=== PATIENT | female | born 1975 | race Caucasian/White ===

== ENCOUNTER 2018-04-27 06:33 | Emergency (ER) | payer MEDICAID, OTHER ==
[2018-04-27 06:37] VITALS: BMI 23.6
--- NOTE | 2018-04-27 07:31 | ED PDOC ---
Arrival/HPI - General Historian: Patient - History of Present Illness Symptom Onset: Gradual Symptom Course: Unchanged Severity Level: Mild <Lalit Riggins - Last Filed: 04/27/18 10:41> <Ramy Hobson - Last Filed: 04/28/18 22:27> - General Chief Complaint: Allergic Reaction Time Seen by Provider: 04/27/18 07:17 - History of Present Illness Narrative History of Present Illness (Text): 04/27/18 07:21 42 year old female, past medical history of significant for depression and fibroids, presents to the ED with abdominal bloating that started a few hours ago. Patient states she went to a house alliance party last night and took Brittni. She started feeling a sore throat and shortly left the alliance party thereafter. She denies any difficulty breathing, shortness of breath, or feelings of her throat closing up. When she came home she drank an entire bottle of milk and took Melatonin, which she takes regularly. After an hour she began feeling bloated. She denies any abdominal pain, bowel movements since yesterday, passing of flatus, nausea, vomiting, headache, or dizziness. 04/27/18 07:35 04/27/18 10:41 No PMD (Lalit Riggins) Past Medical History - Provider Review Nursing Documentation Reviewed: Yes - Infectious Disease Hx of Infectious Diseases: None - Tetanus Immunization Tetanus Immunization: Unknown - Genitourinary/Gynecological Other/Comment: Fibroids - Psychiatric Hx Depression: Yes Hx Substance Use: No - Surgical History Other/Comment: Removal of fibroids - Anesthesia Hx Anesthesia: No - Suicidal Assessment Suicidal Thoughts: No <Lalit Riggins - Last Filed: 04/27/18 10:41> Family/Social History - Physician Review Nursing Documentation Reviewed: Yes Family/Social History: No Known Family HX Smoking Status: Smokes e-cigs Hx Alcohol Use: No Frequency of alcohol use: Few days per week Hx Substance Use: No <Lalit Riggins - Last Filed: 04/27/18 10:41> Allergies/Home Meds <Lalit Riggins - Last Filed: 04/27/18 10:41> <Ramy Hobson - Last Filed: 04/28/18 22:27> Allergies/Adverse Reactions: Allergies No Known Allergies Allergy (Verified 04/27/18 06:40) Home Medications: Home Meds Medication Instructions Recorded Confirmed No Known Home Med 04/27/18 04/27/18 Review of Systems - Physician Review All systems were reviewed & negative as marked: Yes - Review of Systems Constitutional: absent: Fevers Eyes: absent: Vision Changes ENT: Sore Throat Respiratory: absent: SOB Cardiovascular: absent: Chest Pain, Palpitations Gastrointestinal: absent: Abdominal Pain, Nausea, Vomiting Genitourinary Female: absent: Dysuria Musculoskeletal: absent: Back Pain Skin: absent: Rash Neurological: absent: Headache, Dizziness Endocrine: absent: Diaphoresis Hemo/Lymphatic: absent: Adenopathy Psychiatric: absent: Anxiety <Lalit Riggins - Last Filed: 04/27/18 10:41> Physical Exam Vital Signs Reviewed: Yes Temperature: Afebrile Blood Pressure: Normal Pulse: Tachycardic Respiratory Rate: Normal Appearance: Positive for: Well-Appearing, Non-Toxic, Comfortable Pain Distress: None Mental Status: Positive for: Alert and Oriented X 3 - Systems Exam Head: Present: Atraumatic, Normocephalic Pupils: Present: PERRL Extroacular Muscles: Present: EOMI Mouth: Present: Moist Mucous Membranes Neck: Present: Normal Range of Motion Respiratory/Chest: Present: Clear to Auscultation. No: Respiratory Distress, Accessory Muscle Use, Wheezes Cardiovascular: Present: Regular Rate and Rhythm Abdomen: Present: Distention, Normal Bowel Sounds. No: Tenderness Neurological: Present: Speech Normal Skin: Present: Warm, Dry Psychiatric: Present: Alert, Oriented x 3, Anxious <Lalit Riggins - Last Filed: 04/27/18 10:41> Vital Signs Temp Pulse Resp BP Pulse Ox 04/27/18 09:12 98 F 85 19 124/53 L 99 04/27/18 08:27 128/72 04/27/18 06:53 97.9 F 91 H 18 130/85 100 Medical Decision Making Reassessment Condition: Improved <Lalit Riggins - Last Filed: 04/27/18 10:41> <Ramy Hobson - Last Filed: 04/28/18 22:27> ED Course and Treatment: 04/27/18 07:53 42 year old female presenting with abdominal distension. Patient given Maalox and Pepcid. Abdominal x-ray ordered. Urine drug screen ordered. 04/27/18 08:51 Patient had 2 bowel movements in the ED. States her abdomen is back to normal and no longer feels bloated. Abdominal x-ray shows no bowel obstruction and moderate constipation. 04/27/18 09:08 UDS positive for cocaine (Lalit Riggins) Patient is a 42 year old female with history of fibroids and depression. Patient arrives to ER for complaint of abdominal bloating. Patient Seen With Resident: In agreement with resident note which contains more details about the patient. Patient was seen and evaluated with resident. Came up with plan and treatment together. (Ramy Hobson) - Lab Interpretations Lab Results: Lab Results 04/27/18 08:00: Urine Opiates Screen Negative, Urine Methadone Screen Negative, Ur Barbiturates Screen Negative, Ur Phencyclidine Scrn Negative, Ur Amphetamines Screen Negative, U Benzodiazepines Scrn Negative, U Oth Cocaine Metabols Positive H, U Cannabinoids Screen Negative - RAD Interpretation Radiology Orders: 04/27/18 07:33 ABDOMEN PORTABLE 2 VIEWS [RAD] Stat - Medication Orders Current Medication Orders: Discontinued Medications Al Hydrox/Mg Hydrox/Simethicone (Maalox Plus 30 Ml) 30 ml PO STAT STA Stop: 04/27/18 07:33 Last Admin: 04/27/18 07:48 Dose: 30 ml Famotidine (Pepcid) 20 mg PO STAT STA Stop: 04/27/18 07:33 Last Admin: 04/27/18 07:48 Dose: 20 mg - PA / CARROT BUNCHER / Resident Statement / has reviewed & agrees with the documentation as recorded. / has examined the patient and agrees with the treatment plan. <Ramy Hobson - Last Filed: 04/28/18 22:27> Disposition/Present on Arrival - Present on Arrival History of DVT/PE: No History of Uncontrolled Diabetes: No Urinary Catheter: No History of Decub. Ulcer: No History Surgical Site Infection Following: None <Lalit Riggins - Last Filed: 04/27/18 10:41> - Present on Arrival Any Indicators Present on Arrival: No - Disposition Have Diagnosis and Disposition been Completed?: Yes Disposition Time: 08:48 Patient Plan: Discharge <Ramy Hobson - Last Filed: 04/28/18 22:27> - Disposition Diagnosis: Gastritis, Constipation Disposition: HOME/ ROUTINE Condition: IMPROVED Discharge Instructions (ExitCare): Constipation, Adult (DC), Gastritis (DC) Referrals: Janell Chaparro MD [Medical Doctor] - Follow up with primary [facility] at [facility] [place] [Outside] - Follow up with primary Forms: [employer] (Luxembourger)
[2018-04-27] MEDS ORDERED: Alum-Mag Hydrox-Simethicone Susp (30 mL) PO STA (07:32)
--- NOTE | 2018-04-27 08:48 | RAD ---
Date of service: 04/27/2018 HISTORY: abdominal distention COMPARISON: None available FINDINGS: BOWEL: Nonobstructive bowel gas pattern. Moderate constipation. No definite free air. BONES: No acute osseous abnormality is detected. OTHER FINDINGS: Lung bases appear clear. Abdominal jewelry. IMPRESSION: Nonobstructive bowel gas pattern. Moderate constipation.
[2018-04-27 09:03] LABS: BARBITURATES, UR NEGATIVE (NEGATIVE); BENZODIAZEPINES, UR NEGATIVE (NEGATIVE); OPIATES, UR NEGATIVE (NEGATIVE); PHENCYCLIDINE, UR NEGATIVE (NEGATIVE)
[2018-04-27 09:15] VITALS: BP 124/53; PULSE 85; RESP 19; TEMP 98; O2SAT 99
== END 2018-04-27 09:12 | disposition home or self-care (01) ==
LOC: ED 06:33
DX: K29.70 Gastritis, unspecified, without bleeding (principal); K59.00 Constipation, unspecified
CPT/HCPCS: 74019; 99284; G0480

== ENCOUNTER 2018-05-02 06:12 | Emergency (ER) | payer MEDICAID, OTHER ==
[2018-05-02 06:12] VITALS: BMI 23.6
--- NOTE | 2018-05-02 07:15 | ED PDOC ---
Arrival/HPI - General Historian: Patient - History of Present Illness Time/Duration: 1-3 hours Symptom Onset: Sudden Symptom Course: Unchanged Quality: Pressure Severity Level: 5 <Sajan Montoya - Last Filed: 05/02/18 10:42> <Trino Hope - Last Filed: 05/02/18 11:07> - General Chief Complaint: Anxiety Time Seen by Provider: 05/02/18 07:14 - History of Present Illness Narrative History of Present Illness (Text): 05/02/18 07:15 42 year old female, past medical history of significant for anxiety, depression , and fibroids, presents to the ED with anxiety and chest pain. Patient states that she started feeling anxious this morning after ingesting 4 tablets of citalopram, one bottle of red wine, and snort some cocaine. She also admits to have chest pain that she describes as pressure-like, 5/10, and non-radiating. She denies suicidal or homicidal ideation. Patient further denies headaches, fevers, chills, N/V/D, shortness of breath, or urinary symptoms. 05/02/18 08:47 (Sajan Montoya) Past Medical History - Provider Review Nursing Documentation Reviewed: Yes - Travel History Have you recently traveled outside [place] w/in the past 3 mons?: No - Past History Past History: No Previous - Infectious Disease Hx of Infectious Diseases: None - Tetanus Immunization Tetanus Immunization: Unknown - Reproductive Menopause: No - Hematological/Oncological Hx Anemia: Yes - Genitourinary/Gynecological Other/Comment: Fibroids - Psychiatric Hx Anxiety: Yes Hx Depression: Yes Hx Panic Disorder: Yes Hx Substance Use: No - Surgical History Other/Comment: Removal of fibroids - Anesthesia Hx Anesthesia: No <Sajan Montoya - Last Filed: 05/02/18 10:42> Family/Social History - Physician Review Nursing Documentation Reviewed: Yes Family/Social History: Hypertension Smoking Status: Light Smoker < 10 Cigarettes Daily Hx Alcohol Use: Yes Frequency of alcohol use: Socially Hx Substance Use: Yes <Sajan Montoya - Last Filed: 05/02/18 10:42> Allergies/Home Meds <Sajan Montoya - Last Filed: 05/02/18 10:42> <Trino Hope - Last Filed: 05/02/18 11:07> Allergies/Adverse Reactions: Allergies No Known Allergies Allergy (Verified 05/02/18 06:34) Home Medications: Home Meds Medication Instructions Recorded Confirmed Citalopram [celEXA] 20 mg PO 05/02/18 Review of Systems - Physician Review All systems were reviewed & negative as marked: Yes - Review of Systems Constitutional: Normal. absent: Fevers, Night Sweats Eyes: Normal. absent: Vision Changes ENT: Normal Respiratory: Normal Cardiovascular: Chest Pain Gastrointestinal: Normal. absent: Constipation, Diarrhea, Nausea, Vomiting Genitourinary Female: Normal. absent: Dysuria, Frequency, Hematuria Musculoskeletal: Normal Skin: Normal. absent: Rash, Pruritis Neurological: Normal. absent: Headache, Dizziness Psychiatric: Anxiety <Sajan Montoya - Last Filed: 05/02/18 10:42> Physical Exam Vital Signs Reviewed: Yes Temperature: Afebrile Blood Pressure: Hypertensive Pulse: Tachycardic Respiratory Rate: Normal Appearance: Positive for: Well-Appearing, Comfortable. No: Non-Toxic Pain Distress: Mild Mental Status: Positive for: Alert and Oriented X 3 - Systems Exam Head: Present: Atraumatic, Normocephalic Pupils: Present: PERRL Extroacular Muscles: Present: EOMI Conjunctiva: Present: Normal Mouth: Present: Moist Mucous Membranes Respiratory/Chest: Present: Clear to Auscultation, Good Air Exchange. No: Respiratory Distress, Accessory Muscle Use Cardiovascular: Present: Normal S1, S2, Tachycardic. No: Murmurs, Rub, Gallop Abdomen: Present: Tenderness (epigastric region tender to palpation), Normal Bowel Sounds. No: Distention, Peritoneal Signs Upper Extremity: Present: Normal Inspection. No: Cyanosis, Edema Lower Extremity: Present: Normal Inspection. No: Edema, CALF TENDERNESS Neurological: Present: GCS=15, CN II-XII Intact, Speech Normal Skin: Present: Warm, Dry, Normal Color. No: Rashes Psychiatric: Present: Alert, Oriented x 3 <Sajan Montoya - Last Filed: 05/02/18 10:42> Vital Signs Temp Pulse Resp BP Pulse Ox 05/02/18 10:42 75 19 117/75 96 05/02/18 08:00 98.7 F 72 18 122/65 99 05/02/18 06:36 98 F 101 H 17 141/81 98 Medical Decision Making <Sajan Montoya - Last Filed: 05/02/18 10:42> - Lab Interpretations I have reviewed the lab results: Yes - EKG Interpretation Interpreted by ED Physician: Yes Type: 12 lead EKG <HerminiaTrino - Last Filed: 05/02/18 11:07> ED Course and Treatment: 05/02/18 07:42 Impression: Patient is a 42 year old female presenting to the ED with anxiety and chest pain. Differential Diagnosis included but are not limited to: - Anxiety - CA Plan: -- EKG -- CBC -- CMP -- Troponin -- Ativan Progress Notes: 05/02/18 08:52 - EKG: NSR at 80 bpm, no ST changes - UDS: positive for coccaine (Sajan Montoya) Patient Seen With Resident: In agreement with resident note which contains more details about the patient. Patient was seen and evaluated with resident. Came up with plan and treatment together. 42 year old female presents complaining of anxiety, abdominal pain, and chest pain that began this morning after ingesting 4 tablets of citalopram, one bottle of red wine, and snort some cocaine Plan: -- EKG -- Labs -- Ativan -- Reassess and disposition (Trino Hope) - Lab Interpretations Lab Results: 05/02/18 08:10 05/02/18 08:10 Lab Results 05/02/18 08:10: WBC 12.9 H, RBC 4.37, Hgb 13.5, Hct 38.7, MCV 88.6, MCH 30.9, MCHC 34.9, RDW 12.5, Plt Count 288, MPV 9.7, Gran % 83.4 H, Lymph % (Auto) 13.1 L, Mcdonald % (Auto) 3.0, Eos % (Auto) 0.2 L, Baso % (Auto) 0.3, Gran # 10.78 H, Lymph # (Auto) 1.7, Mcdonald # (Auto) 0.4, Eos # (Auto) 0.0, Baso # (Auto) 0.04 05/02/18 08:10: Sodium 137, Potassium 4.0, Chloride 102, Carbon Dioxide 24, Anion Gap 15, BUN 9, Creatinine 0.6 L, Est GFR ( Amer) > 60, Est GFR (Non -Af Amer) > 60, Random Glucose 89, Calcium 9.2, Total Bilirubin 0.3, AST 26, ALT 21, Alkaline Phosphatase 44, Troponin I < 0.01, Total Protein 7.7, Albumin 4.5, Globulin 3.2, Albumin/Globulin Ratio 1.4 05/02/18 07:51: Urine Opiates Screen Negative, Urine Methadone Screen Negative, Ur Barbiturates Screen Negative, Ur Phencyclidine Scrn Negative, Ur Amphetamines Screen Negative, U Benzodiazepines Scrn Negative, U Oth Cocaine Metabols Positive H, U Cannabinoids Screen Negative - Medication Orders Current Medication Orders: Discontinued Medications Lorazepam (Ativan) 1 mg PO ONCE ONE PRN Reason: Protocol Stop: 05/02/18 07:38 Last Admin: 05/02/18 08:14 Dose: 1 mg <Sajan Montoya - Last Filed: 05/02/18 10:42> - PA / AWS CONSULTANT / Resident Statement / has reviewed & agrees with the documentation as recorded. MD/ has examined the patient and agrees with the treatment plan. - Scribe Statement The provider has reviewed the documentation as recorded by the Scribe <Trino Hope - Last Filed: 05/02/18 11:07> - Scribe Statement Jenny Peters Provider Scribe Attestation: All medical record entries made by the Scribe were at my direction and personally dictated by me. I have reviewed the chart and agree that the record accurately reflects my personal performance of the history, physical exam, medical decision making, and the department course for this patient. I have also personally directed, reviewed, and agree with the discharge instructions and disposition. (Trino Hope) Disposition/Present on Arrival - Present on Arrival History of DVT/PE: No History of Uncontrolled Diabetes: No Urinary Catheter: No History of Decub. Ulcer: No History Surgical Site Infection Following: None <Sajan Montoya - Last Filed: 05/02/18 10:42> <Trino Hope - Last Filed: 05/02/18 11:07> - Disposition Diagnosis: Anxiety Disposition: HOME/ ROUTINE Patient Problems: Current Active Problems Problem Status Onset Anxiety Acute Condition: IMPROVED Discharge Instructions (ExitCare): Anxiety, Adult (DC) Additional Instructions: DESHAWN SMITH, thank you for letting us take care of you today. Your provider was Trino Hope DO and you were treated for ANXIETY. The emergency medical care you received today was directed at your acute symptoms. If you were prescribed any medication, please fill it and take as directed. It may take several days for your symptoms to resolve. Return to the Emergency Department if your symptoms worsen, do not improve, or if you have any other problems. Please contact your doctor or call one of the physicians/clinics you have been referred to that are listed on the Patient Visit Information form that is included in your discharge packet. Bring any paperwork you were given at discharge with you along with any medications you are taking to your follow up visit. Our treatment cannot replace ongoing medical care by a primary care provider outside of the emergency department. Thank you for allowing the [facility] team to be part of your care today. If you had an X-Ray or CT scan: A Radiologist will review the ED reading if any change in treatment is needed we will contact you. If you had a blood, urine, or wound culture: It will take several days for the results, if any change in treatment is needed we will contact you. If you had an STI test: It will take 48 hours for the results. Please call after 1 week if you have not heard back. Referrals: FAMILY PROVIDER,NO [Primary Care Provider] - Follow up with primary Janell Chaparro MD [Medical Doctor] - Follow up with primary Forms: [employer] (Sammarinese)
[2018-05-02 08:31] LABS: BASO # 0.04 K/mm3 (0.0-2.0); BASO % 0.3 % (0.0-3.0); EOS % 0.2 % (1.5-5.0); GRAN # 10.78 (1.4-6.5); GRAN % 83.4 % (50.0-68.0); HEMOGLOBIN 13.5 g/dL (12.0-16.0); LYMPH # 1.7 (1.2-3.4); LYMPH % 13.1 % (22.0-35.0); MEAN CELL VOLUME 88.6 fl (80.0-105.0); MEAN CORPUSCULAR HEMOGLOBIN 30.9 pg (25.0-35.0); MEAN CORPUSCULAR HGB CONC 34.9 g/dl (31.0-37.0); MEAN PLATELET VOLUME 9.7 fl (7.0-11.0); MONO # 0.4 (0.1-0.6); RBC 4.37 10^6/uL (3.5-6.1); RED CELL DISTRIBUTION WIDTH 12.5 % (11.5-14.5); WHITE BLOOD COUNT 12.9 10^3/ul (4.5-11.0)
[2018-05-02 08:41] LABS: ALB/GLOB RATIO 1.4 (1.1-1.8); ALBUMIN 4.5 g/dL (3.0-4.8); ALT/SGPT 21 U/L (7-56); AST/SGOT 26 U/L (14-36); BLOOD UREA NITROGEN 9 mg/dL (7-21); CALCIUM 9.2 mg/dL (8.4-10.5); GFR NON-AFRICAN AMERICAN > 60
[2018-05-02 08:53] LABS: TROPONIN I < 0.01 ng/mL
[2018-05-02 10:21] LABS: BARBITURATES, UR NEGATIVE (NEGATIVE); BENZODIAZEPINES, UR NEGATIVE (NEGATIVE); OPIATES, UR NEGATIVE (NEGATIVE); PHENCYCLIDINE, UR NEGATIVE (NEGATIVE)
[2018-05-02 10:43] VITALS: BP 117/75; PULSE 75; RESP 19; O2SAT 96
[2018-05-02 10:59] VITALS: TEMP 98.7
--- NOTE | 2018-05-02 15:58 | CARD ---
APPROVED REPORT Date of service: 05/02/2018 EKG Measurement Heart [id number] <Conclusion> Normal sinus rhythm Septal infarct, age undetermined Abnormal ECG
== END 2018-05-02 10:45 | disposition home or self-care (01) ==
LOC: ED 06:12
DX: F41.9 Anxiety disorder, unspecified (principal); F17.210 Nicotine dependence, cigarettes, uncomplicated